=== PATIENT | male | born 2000 | race Caucasian/White ===

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

== ENCOUNTER 2021-03-20 22:04 | Emergency (ER) | payer MEDICAID ==
[2021-03-20] MEDS ORDERED: Ondansetron ODT 4 MG TAB ONE (22:57)
== END 2021-03-20 23:13 | disposition home or self-care (01) ==
LOC: MADERS 22:04
DX: H83.01 Labyrinthitis, right ear (principal); F12.10 Cannabis abuse, uncomplicated; H61.23 Impacted cerumen, bilateral; E78.5 Hyperlipidemia, unspecified; E78.00 Pure hypercholesterolemia, unspecified; F17.210 Nicotine dependence, cigarettes, uncomplicated; F17.290 Nicotine dependence, other tobacco product, uncomplicated
CPT/HCPCS: 99283; Q0162